=== PATIENT | male | born 1970 | race Caucasian/White ===

== ENCOUNTER 2017-02-04 13:09 | Emergency (ER) | payer BC ==
[~2017-02-04] VITALS: Ht 190.5 cm; Wt 102.1 kg
[2017-02-04 13:40] VITALS: BP 112/74
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
--- NOTE | 2017-02-05 06:31 | EKG ---
[facility] [address] [place] [address] Test Date: 2017-02-04 Test Time: 13:39:46 Pat Name: NAMRATA FRANZ Department: Room: Gender: M Legal Process Specialist: : [id number] Requested By: ORLANDO MCCORD Order Number: [id number] Reading MD: Juan Gupta Measurements Intervals [place] Rate: 74 P: 46 CA: 156 QRS: 26 QRSD: 98 T: 28 QT: 362 QTc: 407 Interpretive Statements SINUS RHYTHM NONSPECIFIC ST-T WAVE CHANGES. POSSIBLY ABNORMAL ECG RI6.01 No previous ECG available for comparison Electronically Signed On 02-11-2017 9:12:40 CDT by Juan Gupta
== END 2017-02-04 14:44 | disposition home or self-care (01) ==
LOC: ER 13:09
DX: F43.0 Acute stress reaction (principal); Z86.73 Personal history of transient ischemic attack (TIA), and cerebral infarction without residual deficits; H40.9 Unspecified glaucoma; V43.52XA Car driver injured in collision with other type car in traffic accident, initial encounter; Y93.89 Activity, other specified; Y99.8 Other external cause status; Y92.89 Other specified places as the place of occurrence of the external cause
CPT/HCPCS: 93005; 99284-25